=== PATIENT | female | born 1970 | race Caucasian/White ===

== ENCOUNTER 2021-06-08 14:29 | Outpatient (CLI) | payer BC | END 2021-06-08 14:30 | disposition home or self-care (01) | LOC: CSHLAB 14:29 | PROVIDERS: ATTEND Obstetrics & Gynecology | DX: Z01.818 Encounter for other preprocedural examination (principal); Z20.822 Contact with and (suspected) exposure to COVID-19; T83.712A Erosion of implanted urethral mesh to surrounding organ or tissue, initial encounter | CPT/HCPCS: 80048; 85027; 86850; 86900; 86901; 93005; 93010; U0003; U0005 ==